=== PATIENT | male | born 1995 | race African-American/Black ===

== ENCOUNTER 2017-05-04 01:17 | Emergency (ER) | payer BC ==
[~2017-05-04] VITALS: Ht 182.9 cm; Wt 84.0 kg
[2017-05-04 01:23] VITALS: O2SAT 92; Ht 182.9 cm; Wt 84.0 kg
[2017-05-04] MEDS ORDERED: HALOPERIDOL DECANOATE INJ 50 MG/ML VIAL IM ONE (01:30)
--- NOTE | 2017-05-04 01:34 | EMERGENCY ROOM VISIT NOTE ---
History Report prepared by Jaz: Geri Orona Under the Supervision of: Dr. Milagros Salgado D.O. 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 The patient notes he smoked good weed tonight and denies that it was not laced with anything from his supplier. As per [facility] Police, they stopped a car in the middle of the road and there was multiple people in the car. They report the patient kept repeating, "I work for [employer] and I'm from [place]." Patient was initially minimally responsive when they stopped the car and they were concerned for his well-being. The patient was awoken then he became agitated and aggressive and began trying to fight with police. He was then handcuffed and ems was called for additional evaluation. According to police there is no trauma or injury during the altercation. HPI limited due to intoxication. Pt denies headache, change in vision, fevers, chest pain, shortness of breath, nausea, vomiting, diarrhea, pain with urination, and melena. Source of History: patient, police History Limited By: other (toxicology) Onset: police captain Position: other (global) Associated Symptoms: No fevers, No chills, No headache, No chest pain, No SOB, No nausea, No vomiting, No melena, No diarrhea, No urinary symptoms Review of Systems See HPI for pertinent positives & negatives. ROS limited due to alcohol intoxication. Family History Patient reports no known family medical history. Social History Smoking Status: Unknown if Ever Smoked Smokeless Tobacco Use: Unknown Drug Use: marijuana Occupation Status: [employer] student Current/Historical Medications No Active Prescriptions or Reported Meds Allergies Coded Allergies: No Known Allergies (Unverified , 05/04/17) Physical Exam Vital Signs Date Time Temp Pulse Resp B/P (MAP) Pulse Ox O2 Delivery O2 Flow Rate FiO2 05/04/17 08:51 37.6 85 22 120/79 100 05/04/17 08:12 85 22 100 05/04/17 08:07 62 25 93 05/04/17 08:01 120/79 05/04/17 07:37 58 13 95 05/04/17 07:07 58 8 95 05/04/17 07:01 109/49 05/04/17 06:37 66 12 95 05/04/17 06:32 64 16 95 05/04/17 06:02 64 16 95 05/04/17 06:01 115/53 05/04/17 05:32 62 15 95 05/04/17 05:06 63 05/04/17 05:02 64 16 95 05/04/17 05:01 106/53 05/04/17 04:32 66 17 100 05/04/17 04:27 84 20 100 05/04/17 04:01 116/53 05/04/17 03:57 70 16 97 05/04/17 03:52 75 16 95 05/04/17 03:22 71 16 93 05/04/17 03:05 100/48 05/04/17 03:01 100/48 05/04/17 02:52 78 17 93 05/04/17 02:22 77 19 93 05/04/17 02:17 78 19 94 05/04/17 01:47 119 23 100 05/04/17 01:26 109 05/04/17 01:23 92 Room Air 05/04/17 01:23 37.6 115 24 120/74 100 Room Air 05/04/17 01:19 120/74 Physical Exam GENERAL: alert, well appearing, well nourished, no distress, non-toxic EYE EXAM: normal conjunctiva, PERRL and EOM's grossly intact OROPHARYNX: no exudate, no erythema, lips, buccal mucosa, and tongue normal and mucous membranes are moist NECK: supple, no nuchal rigidity, no adenopathy, non-tender LUNGS: Clear to auscultation. Normal chest wall mechanics HEART: no murmurs, S1 normal and S2 normal ABDOMEN: abdomen soft, non-tender, normo-active bowel sounds, no masses, no rebound or guarding. BACK: Back is symmetrical on inspection and there is no deformity, no midline tenderness, no CVA tenderness. SKIN: no rashes and no bruising UPPER EXTREMITIES: upper extremities are grossly normal. LOWER EXTREMITIES: No pitting edema. NEURO EXAM: awake, alert, slightly agitated, uncooperative, normal speech, moving all 4 extremities spontaneously Medical Decision & Procedures Laboratory Results 05/04/17 01:40 Red Blood Count 5.00, Mean Corpuscular Volume 89.0, Mean Corpuscular Hemoglobin 32.4, Mean Corpuscular Hemoglobin Concent 36.4, Mean Platelet Volume 10.3, Neutrophils (%) (Auto) 88.1, Lymphocytes (%) (Auto) 6.9, Monocytes (%) (Auto) 4.5, Eosinophils (%) (Auto) 0.1, Basophils (%) (Auto) 0.2, Neutrophils # (Auto) 8.39, Lymphocytes # (Auto) 0.66, Monocytes # (Auto) 0.43, Eosinophils # (Auto) 0.01, Basophils # (Auto) 0.02 05/04/17 04:30 Test 05/04/17 01:40 05/04/17 02:32 05/04/17 04:30 05/04/17 07:45 White Blood Count 9.53 K/uL (4.8-10.8) Red Blood Count 5.00 M/uL (4.7-6.1) Hemoglobin 16.2 g/dL (14.0-18.0) Hematocrit 44.5 % (42-52) Mean Corpuscular Volume 89.0 fL (80-100) Mean Corpuscular Hemoglobin 32.4 pg (25-34) Mean Corpuscular Hemoglobin Concent 36.4 g/dl (32-36) Platelet Count 228 K/uL (130-400) Mean Platelet Volume 10.3 fL (7.4-10.4) Neutrophils (%) (Auto) 88.1 % Lymphocytes (%) (Auto) 6.9 % Monocytes (%) (Auto) 4.5 % Eosinophils (%) (Auto) 0.1 % Basophils (%) (Auto) 0.2 % Neutrophils # (Auto) 8.39 K/uL (1.4-6.5) Lymphocytes # (Auto) 0.66 K/uL (1.2-3.4) Monocytes # (Auto) 0.43 K/uL (0.11-0.59) Eosinophils # (Auto) 0.01 K/uL (0-0.5) Basophils # (Auto) 0.02 K/uL (0-0.2) RDW Standard Deviation 38.0 fL (36.4-46.3) RDW Coefficient of Variation 11.9 % (11.5-14.5) Immature Granulocyte % (Auto) 0.2 % Immature Granulocyte # (Auto) 0.02 K/uL (0.00-0.02) Salicylates Level < 1.7 mg/dl (2.8-20) Acetaminophen Level ug/ml (10-30) Total Bilirubin 0.7 mg/dl (0.2-1) Direct Bilirubin 0.2 mg/dl (0-0.2) Aspartate Amino Transf (AST/SGOT) 19 U/L (15-37) Alanine Aminotransferase (ALT/SGPT) 19 U/L (12-78) Alkaline Phosphatase 70 U/L (45-117) Total Protein 7.9 gm/dl (6.4-8.2) Albumin 4.1 gm/dl (3.4-5.0) Ethyl Alcohol mg/dL < 3.0 mg/dl (0-3) Anion Gap 5.0 mmol/L (3-11) Est Creatinine Clear Calc Drug Dose 87.4 ml/min Estimated GFR () 77.8 Estimated GFR (Non- 67.2 BUN/Creatinine Ratio 11.9 (10-20) Calcium Level 8.5 mg/dl (8.5-10.1) Urine Color YELLOW Urine Appearance CLEAR (CLEAR) Urine pH 5.5 (4.5-7.5) Urine Specific [place] 1.016 (1.000-1.030) Urine Protein NEG (NEG) Urine Glucose (UA) NEG (NEG) Urine Ketones TRACE (NEG) Urine Occult Blood NEG (NEG) Urine Nitrite NEG (NEG) Urine Bilirubin NEG (NEG) Urine Urobilinogen NEG (NEG) Urine Leukocyte Esterase NEG (NEG) Urine Opiates Screen NEG (NEG) Urine Methadone, Qualitative NEG (NEG) Urine Barbiturates NEG (NEG) Urine Phencyclidine (PCP) Level NEG (NEG) Ur Amphetamine/Methamphetamine NEG (NEG) MDMA (Ecstasy) Screen NEG (NEG) Urine Benzodiazepines Screen NEG (NEG) Urine Cocaine Metabolite NEG (NEG) Urine Marijuana (THC) POS (NEG) Urine Marijuana (THC Carboxy Acid) 23 NG/ML (CUTOFF=5) Laboratory results per my review. Medications Administered Medications (Trade) Dose Ordered Sig/Latesha Route Start Time Stop Time Status Last Admin Dose Admin Haloperidol Lactate (Haldol Inj) 5 mg STK-MED ONCE .ROUTE 05/04/17 01:44 05/04/17 01:45 DC 2/25/18 01:52 5 MG Sodium Chloride 1,000 ml @ 999 mls/hr Q1H1M STAT IV 05/04/17 02:27 05/04/17 03:27 DC 05/04/17 02:27 999 MLS/HR Sodium Chloride 1,000 ml @ 999 mls/hr Q1H1M STAT IV 05/04/17 04:29 05/04/17 05:29 DC 05/04/17 04:29 999 MLS/HR ECG Per My Interpretation Indication: tachycardia Rate (beats per minute): 105 Rhythm: sinus tachycardia Findings: no acute ischemic change, no ectopy, other (normal axis, normal intervals) Comparison ECG Date: no prior available ED Course 0120: The patient was evaluated in room A2. A complete history and physical exam was performed. 0144: Haldol Inj 5 mg 0155: I rechecked the patient at this time. 0156: I discussed the patient's case with his friends. They state he has never had a reaction like this to smoke marijuana. They did check with the friend he was smoking marijuana with and he feels fine and did not have any adverse reactions. The friend denies that they used any other drugs at that time. The girlfriend denies that he has had any recent injury or illness. Denies disease taking any other current medications. States he typically does not react like this to smoking weed. They state he seemed fine when they picked him up and they were going to take him home when they were stopped by police. 0227: Sodium Chloride 1000 ml @ 999 mls/hr 0429: Sodium Chloride 1000 ml @ 999 mls/hr IV 0433: I rechecked the patient at this time. He was sleeping. 0630: Patient sleeping, vital signs stable. 820: Patient awake and alert, no complaints, discussed all results at bedside. Patient and related with a steady gait and would like to try drinking water. Discussed with him follow-up with his family doctor or [facility] to recheck his renal function. Patient denies any trauma from earlier tonight, denies any coingestions. Patient well-appearing here, remembers being stopped by police, states he remembers being brought in remembers my initial exam. Patient states he just "freaked out" and that is why he did not comply with her request to come down to sit back in bed. Patient denies SI/HI/paranoia /hallucinations. He states he has been under a lot of stress recently and uses marijuana to cope with this. Discussed more appropriate coping mechanisms, possible need for a counselor/therapist. Discussed symptoms to watch and return for. Medical Decision Differential diagnosis: Etiologies such as toxicologic, infection, hypoglycemia, electrolyte abnormalities, cardiac sources, intracerebral event, neurologic, as well as others were entertained. Patient with no apparent trauma or injury, initially required medications to help calm down as he was being aggressive with staff. Patient monitored for several hours, vital signs remained stable throughout. Mild renal dysfunction noted, however this improved following IV hydration, and patient states he does not typically drink much water. I encouraged him to increase his water intake, and to have his kidney numbers rechecked by his family doctor or [facility]. Discussed with him appropriate coping with mechanisms for stress, discussed symptoms to watch and return for, cautioned against use of recreational and illegal drugs, he verbalized understanding all this and was agreeable with plan. All questions answered at bedside, patient well-appearing , in building with a steady gait, tolerating p.o. at time of discharge. Family and mother present, their questions were answered at bedside also, they were in agreement with plan. Medication Reconcilliation Current Medication List: was personally reviewed by me Blood Pressure Screening Patient's blood pressure: Normal blood pressure Blood pressure disposition: Did not require urgent referral Impression Primary Impression: Agitation Additional Impressions: Substance abuse Acute kidney injury Scribe Attestation The scribe's documentation has been prepared under my direction and personally reviewed by me in its entirety. I confirm that the note above accurately reflects all work, treatment, procedures, and medical decision making performed by me. Departure Information Dispostion Other (discharged to police) Prescriptions No Active Prescriptions or Reported Meds Referrals No Doctor, Assigned (PCP) Patient Instructions My [facility] [place] [employer] Additional Instructions Please drink plenty of water. Please follow up with your family doctor to recheck your blood work regarding your kidneys. Please be cautious about what substances you're putting into your body including recreational drugs. Use of recreational or illegal drugs can have long-term health complications. If you have any new or concerning symptoms, please return the emergency room. Problem Qualifiers
[2017-05-04] MEDS ORDERED: HALOPERIDOL LACTATE 5 MG/ML 1 ML VIAL ONE (01:44)
[2017-05-04 01:50] LABS: BASO % 0.2 %; BASO ABS # 0.02 K/uL (0-0.2); EOS % 0.1 %; EOS ABS # 0.01 K/uL (0-0.5); HEMATOCRIT 44.5 % (42-52); HEMOGLOBIN 16.2 g/dL (14.0-18.0); IG# 0.02 K/uL (0.00-0.02); LYMPH % 6.9 %; LYMPH ABS # 0.66 K/uL (1.2-3.4); MEAN CORPUSCULAR HEMOGLOBIN 32.4 pg (25-34); MEAN CORPUSCULAR HGB CONC 36.4 g/dl (32-36); MEAN PLATELET VOLUME 10.3 fL (7.4-10.4); MONO % 4.5 %; MONO ABS # 0.43 K/uL (0.11-0.59); NEUT % 88.1 %; NEUT ABS # 8.39 K/uL (1.4-6.5); PLATELET COUNT 228 K/uL (130-400); RED CELL DISTRIBUTION WIDTH CV 11.9 % (11.5-14.5); WHITE BLOOD COUNT 9.53 K/uL (4.8-10.8)
[2017-05-04 02:09] LABS: CALCIUM 9.5 mg/dl (8.5-10.1); CREATININE 2.15 mg/dl (0.60-1.40); POTASSIUM 3.6 mmol/L (3.5-5.1)
[2017-05-04] MEDS ORDERED: SODIUM CHLORIDE 0.9% 1000ML 1,000 ML IV STA ×2 (02:27→04:29)
[2017-05-04 03:11] LABS: ALBUMIN 4.1 gm/dl (3.4-5.0); TOTAL PROTEIN 7.9 gm/dl (6.4-8.2)
[2017-05-04 05:27] LABS: POTASSIUM 3.8 mmol/L (3.5-5.1)
[2017-05-04 05:31] LABS: CALCIUM 8.5 mg/dl (8.5-10.1); CREATININE 1.48 mg/dl (0.60-1.40)
[2017-05-04 08:51] VITALS: BP 120/79; PULSE 85; TEMP 37.6; O2SAT 100
== END 2017-05-04 08:53 | disposition home or self-care (01) ==
LOC: C.EDA 01:17 → EDBD 01:17 → C.EDA 08:53
DX: R45.1 Restlessness and agitation (principal); F12.10 Cannabis abuse, uncomplicated; N17.9 Acute kidney failure, unspecified